=== PATIENT | female | born 1940 | race Caucasian/White ===

== ENCOUNTER 2016-11-27 07:35 | Observation (INO) | payer OTHER ==
[~2016-11-27] VITALS: Ht 154.9 cm; Wt 56.4 kg
[~2016-11-27 07:35] MED LIST: ADULT LOW DOSE81 M1 PO; AVENTYL,PAMELOR50 MG PO; BETHANECHOL CHLO5 MG PO; BIOTIN1000 MICRO PO; CO Q-10100 MG PO; CYMBALTA30 MG PO; DIAZEPAM5 MG PO; ELAVIL50 MG PO; FIORICET 50-301 EACH PO; IMDUR30 MG PO; INDERAL LA120 MG PO; KLONOPIN1 MG PO; LISINOPRIL5 MG PO; LO-DOSE ASPIRIN81 M1 PO; MAGNESIUM200 MG PO; NORVASC5 MG PO; PROTONIX40 MG PO; PROVENTIL HFA6.7 GM IH; REGLAN10 MG PO; SENNA8.6 M1 PO; SENNA8.6 MG PO; SENNALAX-S TAB1 EACH PO; SINGULAIR10 MG PO; STOOL SOFT-STI1 EACH PO; TORADOL10 MG PO; VERAPAMIL SR240 MG PO; VICODIN ES 7.51 EAC1 PO; ZANTAC300 MG PO
[2016-11-27 09:30] LABS: EOSINOPHIL COUNT 0.1 K/uL (0-0.3); HEMATOCRIT 38.1 % (36.0-46.0); LYMPHOCYTE COUNT 0.9 K/uL (1.0-2.8); MCH 29.3 PG (29.0-34.0); MCHC 32.5 G/DL (30.0-36.0); MCV 90.1 FL (83-99); MONOCYTE (%) 6.9 % (3-12); MONOCYTE COUNT 0.3 K/uL (0-0.8); NEUTROPHIL (%) 67.4 % (45-76); NEUTROPHIL COUNT 2.7 K/uL (1.8-6.4); PLATELET COUNT 224 K/uL (156-360); RBC DIS.WIDTH-CV 13.8 % (11.8-14.6); RBC DIS.WIDTH-SD 44.4 % (39-53); RED BLOOD COUNT 4.23 M/uL (3.80-5.20); WHITE BLOOD COUNT 4.1 K/uL (4.1-10.2)
[2016-11-27 09:44] LABS: INTER. NORMALIZED RATIO 0.9; PROTHROMBIN TIME 9.6 (9.2-11.2); PTT 25.9 (25-32)
[2016-11-27 10:06] LABS: ANION GAP 7 MEQ/L (2-14); CHLORIDE 102 MEQ/L (99-109); POTASSIUM 4.3 MEQ/L (3.7-5.4); SAMPLE HEMOLYSIS CHECK 0; SAMPLE ICTERIC CHECK 0; SAMPLE LIPEMIA CHECK 0; SODIUM 135 MEQ/L (136-147); TOTAL BILIRUBIN 0.3 MG/DL (0.0-1.0)
[2016-11-27 10:11] LABS: ALKALINE PHOSPHATASE 68 IU/L (3-129); GFR ESTIMATE (CALCULATED) > 59 mL/min/; GLUCOSE 99 mg/dL (70-99); LIPASE 24 U/L (1.0-51.0); UREA NITROGEN (BUN) 18 mg/dL (9-23)
[2016-11-27 10:14] LABS: TROP-I INTERPRETATION NEGATIVE; TROPONIN-I < 0.01 ng/mL (0.0-0.30)
[2016-11-27] MEDS ORDERED: ELAVIL25 MG PO (10:35)
[2016-11-27] MEDS ORDERED: CLONAZEPAM1 MG PO (10:39)
[2016-11-27] MEDS ORDERED: MAGNESIUM400 M1 PO (10:39)
[2016-11-27] MEDS ORDERED: INDERAL40 MG PO (10:41)
[2016-11-27] MEDS ORDERED: PROBIOTIC1 EAC1 PO (10:41)
[2016-11-27] MEDS ORDERED: CORRECTOL5 M1 PO (10:41)
[2016-11-27 11:33] VITALS: BP 184/85
[2016-11-27 16:00] VITALS: BP 142/78
[2016-11-27 19:14] LABS: TROP-I INTERPRETATION NEGATIVE; TROPONIN-I 0.02 ng/mL (0.0-0.30)
[2016-11-27 21:00] VITALS: BP 209/102
[2016-11-27 23:14] VITALS: BP 135/62
[2016-11-28 01:00] VITALS: BP 120/62
[2016-11-28 02:28] LABS: TROP-I INTERPRETATION NEGATIVE; TROPONIN-I < 0.01 ng/mL (0.0-0.30)
[2016-11-28 03:28] VITALS: BP 130/62
[2016-11-28 05:08] VITALS: BP 110/55
[2016-11-28 08:00] VITALS: BP 102/63
[2016-11-28] MEDS ORDERED: INDERAL40 MG PO (09:46)
[2016-11-28] MEDS ORDERED: NITROSTAT0.4 MG SL (09:46)
== END 2016-11-28 11:48 | disposition home or self-care (01) ==
LOC: EME 07:35 → 5WEST 10:21 → EDOF 10:21 → 5WEST 10:59
PROVIDERS: Emergency Medicine; Internal Medicine
DX: R10.13 Epigastric pain (principal); R42 Dizziness and giddiness; R11.0 Nausea; R06.02 Shortness of breath; R61 Generalized hyperhidrosis; I25.10 Atherosclerotic heart disease of native coronary artery without angina pectoris; I25.2 Old myocardial infarction; Z98.61 Coronary angioplasty status; Z86.73 Personal history of transient ischemic attack (TIA), and cerebral infarction without residual deficits; Z95.828 Presence of other vascular implants and grafts; Z87.891 Personal history of nicotine dependence; Z88.2 Allergy status to sulfonamides
CPT/HCPCS: 71010; 80053; 83690; 84484; 85025; 85610; 85730; 93306; 99281; 99285; G0378